=== PATIENT | male | born 1945 | race African-American/Black ===

== ENCOUNTER 2017-02-05 16:04 | Emergency (ER) | payer OTHER ==
[~2017-02-05] VITALS: Ht 157.5 cm; Wt 99.8 kg
[2017-02-05] MEDS ORDERED: SODIUM CHLORIDE 0.9% 1,000 ML IV ONE (16:23)
[2017-02-05 16:33] VITALS: BP 86/52
[2017-02-05] MEDS ORDERED: cefTRIAXone 1GM/50ML D5W 50 ML IV ONE ×2 (16:45)
[2017-02-05] MEDS ORDERED: ACETAMINOPHEN 325 MG RECT SUPP PR ONE (16:45)
[2017-02-05] MEDS ORDERED: NOREPINEPHRINE BITARTRATE 250 ML IV ONE (17:02)
[2017-02-05 17:06] LABS: Basophils # (auto) 0 uL; DEFINITIVE VIEW TRANSMISSION; Eosinophils # (auto) 0 uL; Monocytes # (auto) 0.3 uL; Monocytes % (auto) 4.9 % (0.0-12.0); Neutrophils # (auto) 5.7 uL; White Blood Cell 7.1 10^3/uL (4.4-10.8)
[2017-02-05 17:08] LABS: Basophils % (auto) 0.3 % (0.0-2.0); Hematocrit 36.5 % (41.0-53.0); Hemoglobin 11.7 g/dL (13.5-17.5); Lymphocytes % (auto) 14.3 % (10.0-50.0); Mean Corpuscular Hemoglobin 32.8 pg (28.0-32.0); Mean Corpuscular Volume 102.7 fL (80.0-100.0); Neutrophils % (auto) 80.5 % (37.0-80.0); Platelet Count (auto) 117 10^3/uL (140-450); Red Cell Distribution Width 18.2 % (11.6-16.0)
[2017-02-05 17:23] LABS: Albumin 2.7 g/dL (3.4-5.0); Anion Gap 21 (5-15); Aspartate Aminotransferase 388 U/L (15-37); BUN/Creatinine Ratio 4.8; Blood Urea Nitrogen 33 mg/dL (7-18); Calcium 7.6 mg/dL (8.5-10.1); Carbon Dioxide 23 mmol/L (21-32); Chloride 86 mmol/L (98-107); GFR African American 10 mL/min; GFR Non-African American 9 mL/min; Magnesium 2.4 mg/dL (1.6-2.6); Sodium 130 mmol/L (136-145)
[2017-02-05 17:25] LABS: Bilirubin, Total 2.6 mg/dL (0.2-1.0); Total Protein 6.6 g/dL (6.4-8.2)
[2017-02-05 17:28] LABS: Alkaline Phosphatase 170 U/L (45-117)
[2017-02-05 17:31] LABS: Partial Thromboplastin Time 31.2 sec (22.64-33.71)
[2017-02-05 17:35] LABS: Potassium 6.9 mmol/L (3.5-5.1)
[2017-02-05] MEDS ORDERED: SODIUM BICARBONATE 8.4% INJ 50ML SYRINGE ONE (17:35)
[2017-02-05 17:36] LABS: Glucose 629 mg/dL (74-106); INR 1.31 (0.9-1.15); Prothrombin Time 14.3 sec (9.37-12.3)
[2017-02-05] MEDS ORDERED: CALCIUM CHL 100MG/ML 1,000 MG in D5W 5% 100 ML IV ONE (18:00)
[2017-02-05] MEDS ORDERED: SODIUM BICARBONATE 8.4% INJ 50ML SYRINGE IV ONE (18:00)
[2017-02-05 18:19] VITALS: BP 38/20
[2017-02-05 18:27] LABS: Base Excess -2.1 mmol/L (-2.0-2.0); Blood 02Sat 94.2 % (96-100); Blood COHb 0.3 % (0.5-1.5); CPAP / PEEP 0; HCO3 27.5 mmol/L (22-26.0); HHb 5.8 % (0.0-5.0); MODE VENT - A/C; O2Hb 93.9 % (94.0-97.0); PCO2 74.1 mmHg (35.0-45.0); PCO2(T) 74.1 mmHg (35.0-45.0); PO2 107.7 mmHg (80.0-100.0); PO2(T) 107.7 mmHg (80.0-100.0); Sample Type Arterial; pH 7.188 (7.350-7.450)
[2017-02-05 18:29] VITALS: BP 75/57
[2017-02-05] MEDS ORDERED: SODIUM BICARBONATE 8.4 % INJ 50ML VIAL IV ONE (20:00)
[2017-02-05] MEDS ORDERED: NOREPINEPHRINE BITARTRATE 250 ML IV SCH (20:00)
== END 2017-02-06 00:14 | disposition expired ==
LOC: EDBD 16:04 → ER 16:07
DX: I46.9 Cardiac arrest, cause unspecified (principal); I49.9 Cardiac arrhythmia, unspecified; E87.5 Hyperkalemia; R94.5 Abnormal results of liver function studies; R79.89 Other specified abnormal findings of blood chemistry; R79.1 Abnormal coagulation profile; E44.0 Moderate protein-calorie malnutrition; I12.0 Hypertensive chronic kidney disease with stage 5 chronic kidney disease or end stage renal disease; E11.22 Type 2 diabetes mellitus with diabetic chronic kidney disease; N18.6 End stage renal disease; J44.9 Chronic obstructive pulmonary disease, unspecified; E78.5 Hyperlipidemia, unspecified; I25.2 Old myocardial infarction
CPT/HCPCS: 36415; 36600; 51702; 80053; 80320; 82805; 82962; 83735; 84484; 85025; 85379; 85610; 85730; 87040; 92950; 93005; 94002; 96361; 96365; 96367; 99291; J0696; J7030